=== PATIENT | male | born 2000 | race African-American/Black ===

== ENCOUNTER 2022-03-28 07:17 | Emergency (ER) | payer OTHER, SELFPAY ==
[2022-03-28 07:18] VITALS: BP 133/120; PULSE 71; RESP 16; TEMP 36.6; O2SAT 100; BMI 32.5
--- NOTE | 2022-03-28 08:04 | CT_ITS ---
STUDY: CT ABDOMEN AND PELVIS WITH CONTRAST REASON FOR EXAM: Male, 21 years old. Lower abd pain RADIATION DOSAGE (If Supplied By Facility): CTDIvol = ( 20.36 ) mGy, DLP = ( 1430.74 ) mGycm TECHNIQUE: Transaxial images were obtained from the dome of the diaphragm to the symphysis pubis without oral contrast. IV 100mL Isovue-300 was administered. Sagittal and coronal images were reconstructed. Individualized dose optimization techniques were used for this CT. COMPARISON: None. FINDINGS: The visualized lung bases are unremarkable. The visualized portions of the heart are within normal limits. Normal liver. Normal gallbladder and extrahepatic biliary system. Normal spleen. Normal pancreas. Normal bilateral adrenal glands. Normal right kidney. Normal left kidney. Normal visualized stomach. Normal small intestine. There are scattered colonic diverticula consistent with diverticulosis. Moderate amount of fecal material is seen in the right hemicolon. The appendix is visualized and appears normal. Normal abdominal aorta. Normal inferior vena cava. Normal retroperitoneum. Small lymph nodes are seen in the mesentery in the right lower quadrant suggest mesenteric ischemia. Diffuse lumbar wall thickening although the urinary bladder is not completely distended. Normal abdominal wall. Normal osseous structures. CT/Abdomen/Pelvis W IV Cont ONLY IMPRESSION: Scattered sigmoid diverticulosis. Small lymph nodes are seen in the mesentery in the right lower quadrant suggesting mesenteric adenitis. Diffuse bladder wall thickening although the bladder is not completely distended at this time. Electronically Signed: Sammy Puga MD at 9:12 EST ,
--- NOTE | 2022-03-28 08:05 | EDS_ITS ---
HPI HPI - GI History of Present Illness Chief Complaint: Abd Pain Informant: patient Abdominal Pain/Flank Pain Onset: Today and Hours Context: Gradual Onset Timing: Continuous Quality: Aching Location: - (Suprapubic periumbilical abdominal pain.) Current Severity: Mild Maximum Severity: Mild Worsened by: Movement Relieved by: Remaining Still Nausea/Vomiting/Emesis GI Symptom: Negative for Nausea or Vomiting Diarrhea/Melena/Hematochezia GI Symptom: Negative for Diarrhea, Melena or Hematochezia Associated Symptoms Associated Symptoms: Negative for Dysuria, Frequency, Hematuria or Urgency Narrative Narrative: 21-year-old male history depression. No prior abdominal surgeries. States around 3 AM this morning he started having lower abdominal periumbilical and suprapubic abdominal pain. Denies any recent trauma. No fever or chills. No dysuria. No hematuria. No nausea, vomiting or diarrhea. No weight change. No change in his bowel movements. States he is never had this before. Denies any abdominal trauma. He does move a lot of boxes for work. Movement makes it worse. Remaining still makes it better. He does not see any hernia. Prior similar symptoms: No Recent Illness/Hospitalization: No PFSH PFS Medical History (Updated 03/28/22 @ 10:[address] Zbigniew Montejo MD) Anxiety Home Medications escitalopram oxalate 20 mg tablet 20 mg PO DAILY 03/28/22 [History Last Taken Unknown] Allergy/AdvReac Type Severity Reaction Status Date / Time amoxicillin [From Augmentin] Allergy Rash Verified 03/28/22 07:20 clavulanic acid Allergy Rash Verified 03/28/22 07:20 [From Augmentin] Surgical History (Updated 03/28/22 @ 08:39 by Phuong Howell RN) Hx of tonsillectomy Social History Smoking Status: Never smoker ROS ROS ED ROS Narrative Periumbilical and lower abdominal pain. Denies any nausea, vomiting, diarrhea or fever. No dysuria. Review of Systems ROS Unobtainable: Denies due to encephalopathy Constitutional Constitutional ED: Denies chills or fever(s) ENT ENT ED: Denies ear pain Cardiovascular Cardiovascular: Denies chest pain Respiratory/Chest Respiratory/Chest: Denies cough Gastrointestinal Gastrointestinal: Reports abdominal pain; Denies constipation, diarrhea, melena, nausea or vomiting Genitourinary Genitourinary ED: Denies dysuria or hematuria Musculoskeletal Musculoskeletal: Denies arthralgias Integumentary Denies abscess or Abrasions Neurologic Neurologic: Denies headache(s) Psychiatric Psychiatric: Denies anxiety or depression Hematologic/Lymphatic Hematologic/Lymphatic: Denies easy bleeding Allergic/Immunologic Allergic/Immunologic ED: Denies mouth swelling or tongue swelling EXAM Physical Exam Narrative Exam Narrative: 21-year-old male no acute distress. Vital signs are stable except his blood pressure is 133/120 a lot of them recheck that. H EENT exam unremarkable. Neck nontender. No lymphadenopathy. Lungs clear to auscultation bilaterally. Heart regular rhythm no murmur rate about 70. Abdomen soft nondistended normal bowel sounds no peritoneal signs. Right upper and right lower quadrant nontender. No hernia or mass. He has lower abdominal discomfort. Worse when he raises his legs. This could be simple abdominal wall strain. No signs of trauma. Moving all 4 extremities. Back nontender. Neurologic exam normal. Const Vital Signs: 03/28/22 07:18 03/28/22 08:46 Temperature 97.9 F Temperature Source Temporal Pulse Rate 71 Respiratory Rate 16 Blood Pressure 133/120 H 129/65 H Blood Pressure Mean 124 86 Pulse Ox 100 Oxygen Delivery Method Room Air Positive well nourished, well developed and obese; Negative for cachectic, contractures or unkempt General Appearance ED: well developed and NAD; Negative for unkempt, cachectic, contractures or pallor Nutritional Appearance: obese; Negative for cachectic HEENT Reports moist mucous membranes; Denies dry mucous membranes normocephalic and atraumatic; Negative for trauma or tenderness Mouth ED: No dry mucous membranes Mouth: No dry mucous membranes Eyes PERRL and EOMs intact bilaterally General Eye ED: Negative for pale conjunctiva or scleral icterus Neck no lymphadenopathy, supple and no JVD General: Negative for tenderness Carotids: Negative for other Lymph Lymphatic: Negative for other Resp normal respiratory effort and clear to auscultation bilaterally Effort and Inspection: Negative for respiratory distress or retractions Auscultation: Negative for rales, rhonchi or wheezes Cardio regular rate, regular rhythm, S1 normal heart sound, S2 normal heart sound and no murmurs Rate: Negative for bradycardia or tachycardic Rhythm: Negative for abnormal rhythm GI non-distended and no masses; Negative for non-tender Inspection: Negative for abdominal distention Auscultation: normoactive bowel sounds Palpation: soft and tender; Negative for guarding, rigid, hepatomegaly, splenomegaly, hernia, mass, pulsatile mass or rebound tenderness present Back/Spine no CVA tenderness General Back: Negative for CVA tenderness Cervical Spine: Negative for cervical spine tenderness Thoracic Spine / Upper Back: Negative for thoracic spinal tenderness Lumbar Spine / Lower Back: Negative for lumbar spinal tenderness Coccyx: Negative for other Extremity full ROM General Extremety ED: Negative for edema or tenderness General Extremity: Negative for edema Neuro CN's II-XII intact bilaterally and moves all extremities Sensorium / Orientation: alert, oriented to person, oriented to place and oriented to time; Negative for orientation impaired, confused, lethargic or stuporous Motor Exam: strength 5/5 throughout Psych mental status grossly normal and thought process normal Appearance: Negative for unkempt Attitude: No agitated Mood & Affect: Negative for depressed, anxious or tearful Skin no wounds General Skin Exam: Negative for jaundice or pallor Lesions: no lesions Rashes: no rashes Trauma: Negative for abrasion Nails: Negative for discolored MDM MDM MDM Narrative Medical decision making narrative: 21-year-old male lower abdominal pain with no other symptoms. This could be a simple abdominal wall strain which is odd that he is never had it before and it began at 3 AM in the morning. Does not clinically appear to be appendicitis. It does not appear to be his gallbladder. There is no obstruction. There is no visible or hernia on physical exam. CAT scan and labs are being obtained. Repeat exam unchanged. I went over all test results with patient and family members in the room. His exam and history are consistent with mesenteric adenitis. He will be discharged home. Motrin and Tylenol for pain. Lab Data Attestation: I reviewed the patient's lab results. Lab results narrative: CBC normal white count 5.3. H&H 14 and 42. Platelets 325. Electrolytes unremarkable gap is 6. Normal BUN and creatinine of 12 and 0.8. Liver enzymes are normal. Lipase is normal at 59. UA is normal. No white or red cells. No nitrates. Labs: Laboratory Results - last 24 hr 03/28/22 03/28/22 03/28/22 08:15 08:15 08:20 WBC 5.3 RBC 4.89 Hgb 14.0 Hct 42.6 MCV 87.1 MCH 28.6 MCHC 32.9 RDW Std Deviation 39.1 RDW Coeff of Marya 12.3 Plt Count 325 MPV 9.0 Immature Gran % (Auto) 0.200 Neut % (Auto) 47.6 Lymph % (Auto) 36.2 Collin % (Auto) 9.7 Eos % (Auto) 5.7 H Baso % (Auto) 0.6 Absolute Neuts (auto) 2.5 Absolute Lymphs (auto) 1.91 Nucleated RBC % 0 Sodium 141 Potassium 4.0 Chloride 108 H Carbon Dioxide 27.0 Anion Gap 6 BUN 12 Creatinine 0.85 Estim Creat Clear Calc 176.16 Est GFR (MDRD) Af Amer 149 Est GFR (MDRD) Non-Af 123 BUN/Creatinine Ratio 14.2 Glucose 96 Calcium 9.1 Total Bilirubin 0.40 AST 15 ALT 24 Alkaline Phosphatase 66 Total Protein 7.3 Albumin 3.5 Globulin 3.8 Albumin/Globulin Ratio 0.9 Lipase 59 L Urine Color Yellow Urine Clarity Clear Urine pH 6.0 Ur Specific [place] 1.015 Urine Protein Negative Urine Glucose (UA) Normal Urine Ketones Negative Urine Occult Blood Negative Urine Nitrite Negative Urine Bilirubin Negative Urine Urobilinogen Normal Ur Leukocyte Esterase Negative Urine RBC 0 SEEN Urine WBC 0 SEEN Ur Squamous Epith Cells 0 SEEN Urine Bacteria 0 SEEN Urine Mucus 0 SEEN Radiography Diagnostic Testing: Clinical Impression(s) from Imaging Studies Abdomen/Pelvis CT 03/28/22 08:04 IMPRESSION: Scattered sigmoid diverticulosis. Small lymph nodes are seen in the mesentery in the right lower quadrant suggesting mesenteric adenitis. Diffuse bladder wall thickening although the bladder is not completely distended at this time. Electronically Signed: Sammy Puga MD at 9:12 EST , Discharge Plan Triage Chief Complaint: Abd Pain ED Provider: Zbigniew Montejo Dx/Rx/DC Orders Clinical Impression: Abdominal pain, Acute mesenteric adenitis Instructions: Abdominal Pain, ED Adenitis, Mesenteric Prescriptions: No Action escitalopram oxalate 20 mg tablet 20 mg PO DAILY Label Comments: take 1 tablet by mouth once daily Primary Care Provider: Nallely Ravi SEARCH ENGINE OPTIMIZATION CONSULTANT Referrals: Nallely Ravi SEARCH ENGINE OPTIMIZATION CONSULTANT, SEARCH ENGINE OPTIMIZATION CONSULTANT-C [Primary Care Provider] - 1 Week if not improving Activity Restrictions/Additional Instructions: Motrin and Tylenol for pain. Your CAT scan and labs were unremarkable except you have looks called mesenteric adenitis which is inflammation of the lymph nodes usually caused by a virus that should progressively improve. Your appendix and other organs looked good. Disposition Disposition: Home, Self Care
[2022-03-28 08:28] LABS: Bacteria 0 SEEN /hpf (None Seen); Mucous, Urine 0 SEEN /hpf (<or=2+); Red Blood Cells-Urine 0 SEEN /hpf (0-5); Squamous Epithelial Cells - UA 0 SEEN /hpf (0-5); White Blood Cells 0 SEEN /hpf (0-5)
[2022-03-28 08:28] LABS: Absolute Lymphocyte Count 1.91 X10^3/uL (0.83-4.51); Absolute Neutrophil Count 2.5 X10^3/uL (2.0-7.7); Basophil# 0.03 X10^3/uL; Basophil% 0.6 % (0-1); Eosinophils% 5.7 % (0-5); Hematocrit 42.6 % (40-54); Lymphocyte # 1.91 X10^3/ul (0.83-4.51); Lymphocyte % 36.2 % (19-41); Mean Corp Hgb Conc 32.9 g/dL (32-36); Mean Corpuscular Hgb 28.6 pg (27.0-32.0); Mean Corpuscular Volume 87.1 fL (80-94); Monocyte# 0.51 X10^3/uL; Monocyte% 9.7 % (0-10); NRBC Flagged by Analyzer 0 % (0-5); Neutrophil # 2.51 X10^3/uL (2.7-7.7); Neutrophil % 47.6 % (47-70); Platelet Count 325 K/mm3 (150-450); RBC Distribution Width CV 12.3 % (11.6-14.6); RBC Distribution Width SD 39.1 fl (35.1-43.9); Red Blood Count 4.89 M/mm3 (4.6-6.2); White Blood Count 5.3 K/mm3 (4.4-11.0)
[2022-03-28 08:31] LABS: Glucose, Dipstick Normal (Normal); Ketone-Dipstick Negative (Negative); Leukocyte Esterase-Dipstick Negative /ul (Negative); Nitrite-Dipstick Negative (Negative); Occult Blood-Urine Negative /ul (Negative); Protein-Dipstick Negative (Negative); Specific Gravity, Urine 1.015 (1.002-1.030); Urine Bilirubin Dipstick Negative (Negative); Urine Urobilinogen Normal (Normal)
[2022-03-28 08:32] LABS: Color, Urine Yellow (Yellow); Urine Clarity Clear (Clear)
[2022-03-28 08:41] LABS: ALB/GLOB Ratio 0.9 RATIO (0.9-2.4); AST(SGOT) 15 U/L (15-37); Alanine Aminotransfer ALT/SGPT 24 U/L (16-61); Albumin, Serum 3.5 g/dL (3.2-5.0); Alkaline Phosphatase 66 U/L (45-117); Anion Gap 6 (5-15); BUN 12 mg/dL (7-18); BUN/Creat Ratio 14.2 RATIO (10-20); Calcium,Total 9.1 mg/dL (8.5-10.1); Chloride 108 mmol/L (98-107); Creatinine, Serum 0.85 mg/dL (0.70-1.30); EST Glomerular Filtration Rate 123 mL/min (>60); Est Glom Filt Rate - Afr Amer 149 mL/min (>60); Estimated Creatinine Clearance 176.16 ml/min; Globulin 3.8 g/dL (2.2-4.2); Glucose 96 mg/dL (74-106); Lipase 59 U/L (73-393); Protein, Total 7.3 g/dL (6.4-8.2); Sodium Level 141 mmol/L (136-145)
[2022-03-28 08:46] VITALS: BP 129/65
== END 2022-03-28 10:28 | disposition home or self-care (01) ==
PROVIDERS: Emergency Provider Emergency Medicine; PCP Nurse Practitioner Family; Visit Provider Emergency Medicine
DX: I88.0 Nonspecific mesenteric lymphadenitis (principal); R10.33 Periumbilical pain; F41.9 Anxiety disorder, unspecified; R10.2 Pelvic and perineal pain; F32.A Depression, unspecified; E66.9 Obesity, unspecified; Z79.899 Other long term (current) drug therapy
CPT/HCPCS: 74177; 80053; 81001; 83690; 85025; 99283; Q9967; A4216

== ENCOUNTER 2022-08-17 10:30 | Outpatient (RCR) | payer OTHER, SELFPAY ==
--- NOTE | 2022-07-25 13:28 | HP.PTEVAL_ITS ---
Patient's Visit Information MARIA ISABEL WASSERMAN is a 21 year old M referred to Physical Therapy by Dr. Isreal Mayen MD with a diagnosis of PATELLAR INTABILITY OF LEFT KNEE. Date of Evaluation: 07/25/22 Physical Therapist: Isaiah Husain PT, Cert MDT, OCS - Visit Plan Frequency: 2x /Week Duration: 10WEEK Plan: S/P MPFL RECONSTRUCTION ON 07/13/22. BRACE LOCKED IN EXTESNION WITH GAIT UNTIL MD NEEXT VISIT. OKAY FOR ROM WITH KNEE BRACE UNLOCKED TO 90 DEGREEES. SEE PROTOCAL FOR MPFL RECONSTRUCTION. PT INTERVETIONS PER PROTOCAL WITH ROM AND PROGRESSION ,GAIT ,STRENGTHEING EX'S QUADS( CKA )/HAMS/HIP ,FLEXABILITY ,AND VASO FOR EDEMA/CP - Subjective This 21 y/o male presents to physical therapy with patella instability of left knee. Patient underwent s/p post op left MPFL reconstruction on 07/13/22 at [facility] done by Dr Mayen. Prior to surgery patient had MRI. Patient was NWB LLE 1week with brace locked in extension . Patient seen DR last week an okay with WBAT no crutches and cont with brace on with locked in extension with gait. Patient also sleeps with brace. Patient sees DR ~ 2weeks then possible open brace with gait. Patient has had patella subluxing sine 8th grade. Patient most recently jump off tracker then rolled on leg. Patient had no prior PT . Patient has min pain . Patient has min pain. Edema min. Patient sleeping okay . Pain meds Oxycodone. Patient has limitations with ADLS and function as well RTW . Patient goals to get stronger. VOCATION: [employer]. SOCIAL: lives with grandma - Pain Left Knee Pain Intensity (Out of 10): 2 Pain Intensity Range: 3, 10 - Objective POSTURE: WFL with knee brace locked in extension. GAIT: ambulates with knee locked in extension with decrease stance time LLE. SKIN: incision well approximate. EDMA: joint line 48.2 cm. AROM: 5-85 supine knee flexion. FLEXABILITY: hamstrings tightness min tight. MMT: NT ( [employer] ) - Balance/Special Test Scores Lower Extremity Functional Score: 32 - Goals Goal 1:: Patient with HEP per protocol. Goal Time Frame: 8-12 Weeks Goal 2:: Patient to increase AROM supine knee flexion 0-125 degrees or > to gait Goal Time Frame: 8-12 Weeks Goal 3:: Patient to normalize gait Goal Time Frame: 8-12 Weeks Goal 4:: Patient to improve strength peak force quads/hams 35 or > to improve function and nRTW Goal Time Frame: 8-12 Weeks Goal 5:: Patient to demonstrate 75% improvement with improved function and less pain Goal Time Frame: 8-12 Weeks Goal 6:: Patient to improve LFES score by 15 points to improve QOL and function Goal Time Frame: 8-12 Weeks - Rehabilitation Potential Physical Therapy Diagnosis: Patient underwent s/p left MPFL reconstruction on 07/13/22 with decrease ROM , decrease gait with brace ,decrease strength, increase edema and impairs function thus benefit skilled PT Rehabilitation Potential: Good - Anticipated Interventions Patient/Client Instruction: Educate patient on: Condition, Plan of Care For the Purpose of:: To decrease pain, To decrease swelling/inflammation, To increase ROM, To improve muscle performance and motor function, To improve ability to perform ADL's, To increase tolerance to activity/condition/position, To improve ability of physical actions for home/community/work/leisure, To improve gait and locomotor functions, To improve health of tissue, To decrease soft tissue restriction, To increase flexibility/ROM, To improve endurance, To improve balance Therapeutic Exercise to Include: Strength training, Endurance training, Balance training, Flexibilty training, Gait and locomotor training, Passive ROM, Active ROM Comment: quads/hamstrings/hip For the Purpose of:: To decrease pain, To increase ROM, To improve muscle performance and motor function, To improve ability to perform ADL's, To increase tolerance to activity/condition/position, To improve ability of physical actions for home/community/work/leisure, To improve health of tissue, To decrease soft tissue restriction, To increase flexibility/ROM, To improve endurance, To improve balance, To reduce risk of recurrence Functional electric stimulation: Yes - quads TENS: Yes IF ES: Yes Cryotherapy (ice pack, ice massage): Yes Thermo therapy (hot pack): Yes Ultrasound (thermal/non thermal): Yes For the Purpose of:: To decrease pain, To increase ROM, To improve health of tissue, To decrease soft tissue restriction, To increase flexibility/ROM Thank you for the opportunity to evaluate your patient. For Medicare and Medicare HMO plans, please review the plan of care and approve it. It will need to be FAXED BACK to us at [phone] for Medicare purposes. For Medicare only, by signing this I certify the plan of care. Please let me know if there are questions or concerns regarding this plan of care. Physician Signature: Date:
== END 2022-08-17 19:00 | disposition home or self-care (01) ==
LOC: PT 10:30
PROVIDERS: PCP Nurse Practitioner Family; Referring Provider Orthopaedic Surgery Pediatric Orthopaedic Surgery; Visit Provider Orthopaedic Surgery Pediatric Orthopaedic Surgery
DX: M25.362 Other instability, left knee (principal)
CPT/HCPCS: 97110; 97161